=== PATIENT | male | born 1985 | race Caucasian/White ===

== ENCOUNTER 2018-01-24 18:39 | Emergency (ER) | payer SELFPAY ==
[~2018-01-24] VITALS: Ht 188 cm; Wt 262.7 kg
[2018-01-24 18:45] VITALS: BP 151/97
[2018-01-24] MEDS ORDERED: PERCT PO (19:02)
[2018-01-24] MEDS ORDERED: IBUP-2071 PO (19:02)
[2018-01-24] MEDS ORDERED: ALBU8HFA IH (19:12)
== END 2018-01-24 20:38 | disposition home or self-care (01) ==
LOC: EMS 18:40
DX: M54.2 Cervicalgia (principal); F17.210 Nicotine dependence, cigarettes, uncomplicated; J45.909 Unspecified asthma, uncomplicated; Z79.899 Other long term (current) drug therapy; V43.52XA Car driver injured in collision with other type car in traffic accident, initial encounter; Y93.89 Activity, other specified; Y92.410 Unspecified street and highway as the place of occurrence of the external cause; Y99.8 Other external cause status
CPT/HCPCS: 99281

== ENCOUNTER 2022-07-08 21:43 | Emergency (ER) | payer OTHER ==
[~2022-07-08] VITALS: Ht 180.3 cm; Wt 134.1 kg
[~2022-07-08 21:43] MED LIST: ALBU8HFA IH; IBUP-2071 PO; PERCT PO
[2022-07-08] MEDS ORDERED: PROPARACAINE HCL 0.5% 15 ML OPHTHALMIC SOLUTION OU ONE (22:45)
[2022-07-09 01:45] VITALS: BP 151/71
== END 2022-07-09 02:05 | disposition home or self-care (01) ==
LOC: EMS 21:44
DX: H57.13 Ocular pain, bilateral (principal); F12.90 Cannabis use, unspecified, uncomplicated; Z87.39 Personal history of other diseases of the musculoskeletal system and connective tissue; Z98.890 Other specified postprocedural states
CPT/HCPCS: 99283